=== PATIENT | female | born 1945 | race Caucasian/White ===

== ENCOUNTER → 2021-12-18 | Outpatient (CLI) | payer OTHER, MEDICAID | END | disposition home or self-care (01) | LOC: CT 09:44 | PROVIDERS: ATTEND Internal Medicine Hematology & Oncology | DX: R22.1 Localized swelling, mass and lump, neck (principal); J90 Pleural effusion, not elsewhere classified; N85.2 Hypertrophy of uterus; R18.8 Other ascites ==